=== PATIENT | female | born 1950 | race Caucasian/White ===

== ENCOUNTER 2017-10-06 13:41 | Emergency (ER) | payer BC, MEDICARE, OTHER ==
[~2017-10-06] VITALS: Ht 162.6 cm; Wt 59.0 kg
[2017-10-06] MEDS ORDERED: ONDANSETRON ODT 4 MG ONE (14:50)
[2017-10-06] MEDS ORDERED: MECLIZINE CHEWABLE 25 MG TAB PO ONE (15:00)
[2017-10-06] MEDS ORDERED: SODIUM CHLORIDE 0.9% 1,000ML IVBOLUS ONE (15:00)
[2017-10-06] MEDS ORDERED: SODIUM CHLORIDE FLUSH 10ML SYR IVF ONE (15:00)
[2017-10-06] MEDS ORDERED: ONDANSETRON ODT 4 MG PO ONE (15:00)
[2017-10-06] MEDS ORDERED: ONDANSETRON 2MG/ML, 2ML IVPush ONE (15:00)
[2017-10-06 15:23] LABS: ALBUMIN 4.1 g/dL (3.4-5.0); ANION GAP 14 mmol/L (5-15); CALCIUM 9.1 mg/dL (8.5-10.1); CHLORIDE 107 mmol/L (98-107)
[2017-10-06 15:25] LABS: MEAN CORPUSCULAR HGB CONC 34.7 g/dL (32.4-35.8); MEAN CORPUSCULAR VOLUME 86.4 fL (80-100); MEAN PLATELET VOLUME 9.9 fL (7.4-10.4); PLATELET COUNT 300 x10^3/uL (130-400); RED BLOOD COUNT 5.15 x10^6/uL (3.82-5.3); RED CELL DISTRIBUTION WIDTH 13.3 % (9.6-15.2)
[2017-10-06 15:28] LABS: ALANINE AMINOTRANSFERASE 23 U/L (12-78); ALKALINE PHOSPHATASE 53 U/L (45-117); CREATININE 1.08 mg/dL (0.55-1.02); TOTAL PROTEIN 8.1 g/dL (6.4-8.2); TROPONIN I < 0.015 ng/mL (0.000-0.045)
[2017-10-06 15:45] LABS: MD MORPH REVIEW ONLY
[2017-10-06 15:46] LABS: <RBC MORPHOLOGY> NORMAL; BASOPHILS % (AUTO) 0 % (0-1); EOSINOPHILS # (AUTO) 0.01 x10^3/uL (0-0.4); EOSINOPHILS % (AUTO) 0 % (1-7); LYMPHOCYTES # (AUTO) 1.01 x10^3/uL (1-3.4); LYMPHOCYTES % (AUTO) 14 % (22-44); MONOCYTES # (AUTO) 0.22 x10^3/uL (0.2-0.8); MONOCYTES % (AUTO) 3 % (2-9); NEUTROPHILS # (AUTO) 6.06 x10^3/uL (1.8-6.8); NEUTROPHILS % (AUTO) 83 % (42-75)
[2017-10-06 15:47] LABS: <PLATELET ESTIMATE> ADEQUATE; GIANT PLATELETS 1+
[2017-10-06 18:16] LABS: RAPID INFLUENZA A Negative (Negative); RAPID INFLUENZA B Negative (Negative)
[2017-10-06] MEDS ORDERED: MECLIZINE CHEWABLE 25 MG TAB ONE (19:20)
[2017-10-06] MEDS ORDERED: ONDANSETRON 2MG/ML, 2ML ONE (20:16)
[2017-10-06] MEDS ORDERED: PROMETHAZINE 25 MG/ML, 1ML ONE (21:12)
[2017-10-06] MEDS ORDERED: PROMETHAZINE 25 MG/ML, 1ML IM ONE (21:30)
[2017-10-06 22:13] VITALS: BP 144/74
== END 2017-10-06 22:25 | disposition home or self-care (01) ==
LOC: ED 22:19
DX: R42 Dizziness and giddiness (principal); R11.2 Nausea with vomiting, unspecified
CPT/HCPCS: 36415; 80053; 84484; 85025; 87400; 93005; 96361; 96372; 96374; 99285; J2405; J2550; J7030; Q0162